=== PATIENT | female | born 1960 | race African-American/Black ===

== ENCOUNTER 2016-12-30 23:15 | Emergency (ER) | payer OTHER ==
[~2016-12-30] VITALS: Ht 154.9 cm; Wt 52.2 kg
[2016-12-30 23:38] VITALS: BP 136/87
[2016-12-30] MEDS ORDERED: LORAZEPAM 1 MG TABLET ONE (23:48)
[2016-12-31] MEDS ORDERED: LORAZEPAM 1 MG TABLET SL ONE
--- NOTE | 2016-12-31 01:30 | NUR ---
lapd at bedside.
--- NOTE | 2016-12-31 01:52 | NUR ---
Patient verbalized that she is looking for a alf for the night. Seen patient talking on the phone.
== END 2016-12-31 02:25 | disposition home or self-care (01) ==
LOC: ER 23:18
DX: F41.9 Anxiety disorder, unspecified (principal)
CPT/HCPCS: 99284; A4606; Z7610

== ENCOUNTER 2018-09-26 08:54 | Emergency (ER) | payer SELFPAY ==
[~2018-09-26] VITALS: Ht 162.6 cm; Wt 52.2 kg
--- NOTE | 2018-09-26 09:08 | NUR ---
PT BIB BOYFRIEND C/O NON RADIATING MIDSTERNAL CHEST STARTED 15 MINUTES [employer], PATIENT APPEAR ANXIOUS. ALERT AND ORIENTED X 4, VERBALLY RESPONSIVE AND ABLE TO MAKE NEEDS KNOWN. ON ROOM AIR, 02 SAT 100%, BREATHING EVENLY AND UNLABORED. HOOKED TO MONITOR AND CHANGED CLOTHES TO GOWN. KEPT COMFROTABLE. WILL CONTINUE TO MONITOR ACCORDINGLY.
[2018-09-26 09:14] LABS: BASOPHILS # (AUTO) 0.1 /CMM (0.0-0.2); BASOPHILS % (AUTO) 1.1 % (0.0-2.0); EOSINOPHILS % (AUTO) 2.7 % (0.0-6.0); HEMATOCRIT 46 % (33-45); HEMOGLOBIN 15.8 g/dL (11.5-14.8); LYMPHOCYTES # (AUTO) 2.8 /CMM (0.8-4.8); LYMPHOCYTES % (AUTO) 55.3 % (20.0-44.0); MEAN CORPUSCULAR HGB CONC 35 g/dl (31.0-36.0); MEAN CORPUSCULAR VOLUME 88 fL (82-100); MONOCYTES # (AUTO) 0.3 /CMM (0.1-1.30); MONOCYTES % (AUTO) 6.5 % (2.0-12.0); NEUTROPHILS # (AUTO) 1.7 /CMM (1.8-8.9); NEUTROPHILS % (AUTO) 34.4 % (43.0-81.0); PLATELET COUNT (AUTO) 417 /CMM (150-450); RED BLOOD CELL COUNT(AUTO) 5.18 MIL/uL (4.0-5.2)
[2018-09-26] MEDS ORDERED: LORAZEPAM 1 MG TABLET ONE (09:26)
[2018-09-26 09:28] LABS: ALANINE AMINOTRANSFERASE 27 U/L (12-78); ALBUMIN 3.8 g/dL (3.4-5.0); ALKALINE PHOSPHATASE 88 U/L (46-116); ASPARTATE AMINOTRANSFERASE 22 U/L (15-37); BILIRUBIN,DIRECT 0.1 mg/dL (0.0-0.2); BILIRUBIN,TOTAL 0.4 mg/dL (0.2-1.0); CALCIUM, SERUM 9.4 mg/dL (8.5-10.1); CARBON DIOXIDE 30 mmol/L (21-32); CHLORIDE 101 mmol/L (98-107); CREATININE 0.8 mg/dL (0.6-1.3); GLUCOSE 114 mg/dL (74-106); POTASSIUM 3.2 mmol/L (3.5-5.1); SODIUM SERUM 140 mmol/L (136-145); TOTAL PROTEIN, SERUM 7.7 g/dL (6.4-8.2); UREA NITROGEN, BLOOD 17 mg/dL (7-18)
[2018-09-26] MEDS ORDERED: LORAZEPAM 1 MG TABLET PO ONE (09:30)
[2018-09-26] MEDS ORDERED: IV NS 0.9% 1,000 ML BAG IV ONE (09:30)
--- NOTE | 2018-09-26 11:30 | NUR ---
PER DR. CROOKS PATIENT CAN STAY IN THE ROOM UNTIL SHE FINDS A SENIOR CARE AND IF PATIENT WANT'S TO WALK OUT, OK PER .
[2018-09-26 12:35] VITALS: BP 135/81
--- NOTE | 2018-09-26 12:50 | NUR ---
patient refused to signed discharge paper. signed D/C paper with other RN. made aware. Health teaching and education rendered.
== END 2018-09-26 12:50 | disposition home or self-care (01) ==
LOC: ER 08:59
DX: R07.89 Other chest pain (principal); R51 Headache; F41.9 Anxiety disorder, unspecified; I10 Essential (primary) hypertension; Z98.890 Other specified postprocedural states
CPT/HCPCS: 36415; 80048; 80076; 84484; 85025; 85730; 93005; 99284; A4606; Z7610; J7030